=== PATIENT | female | born 1965 | race Caucasian/White ===

== ENCOUNTER 2021-01-12 13:34 | Emergency (ER) | payer OTHER ==
[~2021-01-12] VITALS: Ht 160 cm; Wt 78.0 kg
[2021-01-12 13:34] VITALS: BP 102/63
[2021-01-12] MEDS ORDERED: ACET-2247 PO (14:20)
[2021-01-12] MEDS ORDERED: KETO10 PO (14:20)
[2021-01-12] MEDS ORDERED: HYDROCODONE/ACETAMINOPHEN 10/325 MG TAB PO ONE (15:30)
[2021-01-12] MEDS ORDERED: FENTANYL 50 MCG/HR PATCH TD SCH (15:30)
== END 2021-01-12 16:17 | disposition home or self-care (01) ==
LOC: EDH 13:34
DX: S82.492A Other fracture of shaft of left fibula, initial encounter for closed fracture (principal); E78.5 Hyperlipidemia, unspecified; F32.9 Major depressive disorder, single episode, unspecified; W18.39XA Other fall on same level, initial encounter; Y93.89 Activity, other specified; Y92.89 Other specified places as the place of occurrence of the external cause; Y99.8 Other external cause status
CPT/HCPCS: 29515; 73610; 73630

== ENCOUNTER → 2023-08-02 | Outpatient (CLI) | payer BC ==
[~2023-08-02] MED LIST: ACET-2247 PO; KETO10 PO
== END | disposition home or self-care (01) ==
LOC: SHCH 15:16
PROVIDERS: ATTEND Internal Medicine Cardiovascular Disease
DX: I10 Essential (primary) hypertension (principal)
CPT/HCPCS: 93306